=== PATIENT | male | born 1940 | race Caucasian/White ===

== ENCOUNTER 2020-04-03 15:48 | Inpatient (IN) | payer MEDICARE ==
[~2020-04-03] VITALS: Ht 177.8 cm; Wt 98.7 kg
[2020-04-03] VITALS (21 sets, daily range): BP systolic 84–154; BP diastolic 43–81; BMI 39.8
[2020-04-03 17:23] LABS: HEMATOCRIT 36.1 % (42.0-54.0); HEMOGLOBIN 12.2 g/dL (13.5-17.5); MCH 30.7 pg (26.0-34.0); MCHC 33.8 g/dL (31.0-37.0); MCV 90.7 fL (80.0-100.0); MEAN PLATELET VOLUME 11.1 fL (7.4-10.4); PLATELET COUNT 231 10x3/uL (130-400); RBC 3.98 10x6/uL (4.20-6.10); RDW 14.9 % (11.5-14.5); WBC 33.9 10x3/uL (4.8-10.8)
[2020-04-03 18:54] LABS: ALBUMIN 1.5 g/dL (3.4-5.0); ALKALINE PHOSPHATASE 169 U/L (30-120); ALT (SGPT) 59 U/L (10-68); BILIRUBIN - TOTAL 0.52 mg/dL (0.2-1.3); CALC OSMOLALITY 286 mosm/kg (275-300); CARBON DIOXIDE 19.7 mmol/L (21.0-32.0); CHLORIDE - SERUM 103 mmol/L (98-107); CKMB 1.7 U/L (0.0-3.6); CREATINE KINASE 150 UL (21-232); CREATININE - SERUM 3.2 mg/dL (0.6-1.3); EOSINOPHILS 1 % (0-7); GLUCOSE 159 mg/dL (74-106); LYMPHOCYTES 5 % (15-50); MONOCYTES 2 % (2-11); NEUTROPHILS 92 % (40-80); PLATELET ESTIMATE NORMAL; POTASSIUM - SERUM 5.9 mmol/L (3.5-5.1); PRO BNP 1759 pg/mL (0-450); PROTEIN - SERUM 4.3 g/dL (6.4-8.2); SODIUM 133 mmol/L (136-145); TROPONIN-I < 0.017 ng/mL (0.000-0.060); UREA NITROGEN 62 mg/dL (7-18); eGFR NON AFRICAN AMERICAN 20 mL/min (90-120)
[2020-04-03 18:58] LABS: INR 1.34 (0.85-1.17); PROTIME 16.4 SECONDS (11.6-15.0)
--- NOTE | 2020-04-03 19:00 | NUR ---
RECIVED REPORT AT DOOR, ENTERIC ISOLATION OBSERVED. PT IS INTUBATED/SEDATED. VSS. RIGHT SUBCALVIN CDI, CHACON TO GRAVITY AND DRAINING. RESTRAINTS ARE OBSERVED,SEE FLOWSHEET. BED IS LOW,SIDE RIALSX2,CALL LIGHT WITHIN REACH. WILL CONINTUE TO MONITOR
[2020-04-03 19:21] LABS: CALCIUM 7.1 mg/dL (8.5-10.1); THYROID STIMULATING HORMONE 3.21 uIU/mL (0.36-3.74)
--- NOTE | 2020-04-03 21:04 | NUR ---
CALLED AND TALKED WITH PHARMACY ABOUT NEW D5W C BICARB ORDER. SHE VOICED IT WILL BE A LITTLE BIT BUT ILL BRING IT UP .
--- NOTE | 2020-04-03 21:25 | NUR ---
CALLED TO GET UPDATE ON PT. WHILE ON THE PHONE WITH HER PT HR DROPPED TO 45 THEN WENT BACK UP BTW 58-65 SINUS ANA MARIA. T.O TO START DOPAMINE IV AT 10MCG/KG/MIN AT NOW TO TITRATE. T.O READ BACK CORRECT.
[2020-04-03 22:58] LABS: CKMB 2.6 U/L (0.0-3.6); CREATINE KINASE 238 UL (21-232); TROPONIN-I < 0.017 ng/mL (0.000-0.060)
[2020-04-04] VITALS (24 sets, daily range): BP systolic 110–170; BP diastolic 46–98; BMI 32.7
[2020-04-04 05:34] LABS: ALBUMIN 1.4 g/dL (3.4-5.0); ALKALINE PHOSPHATASE 144 U/L (30-120); ALT (SGPT) 46 U/L (10-68); BILIRUBIN - TOTAL 0.55 mg/dL (0.2-1.3); CALCIUM 7.1 mg/dL (8.5-10.1); CARBON DIOXIDE 22.4 mmol/L (21.0-32.0); CHLORIDE - SERUM 103 mmol/L (98-107); CKMB 2.3 U/L (0.0-3.6); CREATINE KINASE 231 UL (21-232); CREATININE - SERUM 2.6 mg/dL (0.6-1.3); MAGNESIUM - SERUM 1.8 mg/dL (1.8-2.4); PHOSPHOROUS 3.9 mg/dL (2.5-4.9); PROTEIN - SERUM 4.1 g/dL (6.4-8.2); SODIUM 135 mmol/L (136-145); THYROID STIMULATING HORMONE 0.87 uIU/mL (0.36-3.74); UREA NITROGEN 61 mg/dL (7-18); eGFR NON AFRICAN AMERICAN 25 mL/min (90-120)
[2020-04-04 05:35] LABS: CALC OSMOLALITY 292 mosm/kg (275-300); GLUCOSE 215 mg/dL (74-106); POTASSIUM - SERUM 4.2 mmol/L (3.5-5.1); TROPONIN-I < 0.017 ng/mL (0.000-0.060)
[2020-04-04 05:36] LABS: HEMOGLOBIN 12.1 g/dL (13.5-17.5); MCH 30.2 pg (26.0-34.0); MCHC 34.6 g/dL (31.0-37.0); MCV 87.3 fL (80.0-100.0); MEAN PLATELET VOLUME 10.9 fL (7.4-10.4); PLATELET COUNT 225 10x3/uL (130-400); RBC 4.01 10x6/uL (4.20-6.10); RDW 14.6 % (11.5-14.5); WBC 23.6 10x3/uL (4.8-10.8)
[2020-04-04 12:08] LABS: ANISOCYTOSIS OCC; BURR CELLS OCC; LYMPHOCYTES 10 % (15-50); MONOCYTES 3 % (2-11); NEUTROPHILS 87 % (40-80); PLATELET ESTIMATE NORMAL
[2020-04-04 14:39] LABS: AMORPHOUS SEDIMENT <1+ /lpf (NONE SEEN); BACTERIA MODERATE /HPF (NONE SEEN); BILIRUBIN NEGATIVE (NEGATIVE); EPITHELIAL CELLS 0-5 /hpf (0-5); KETONE NEGATIVE (NEGATIVE); NITRITE NEGATIVE (NEGATIVE); UROBILINOGEN NORMAL mg/dL (< 2); WHITE CELLS - URINE 0-5 HPF (0-1)
--- NOTE | 2020-04-04 16:18 | NUR ---
IO REMOVED FROM LEFT LEG WITH CATH INTACT. 2X2 DRESSING PLACED.
--- NOTE | 2020-04-04 18:34 | NUR ---
0715-RESTING ON VENT. VITALS STABLE. 0900-VITALS STABLE AND CONTINUES TO REST 1051-MANAGER REGIONAL AT [facility] CALLED FOR PT UPDATE 1345-dr. sultana at bedside. verbal order to titrate dopamine to 5mcg. 1614 BROADCASTER REMOVED IO AT BEDSIDE. DRESSING APPLIED. SITE STABLE AFTER PRESSURE HELD 1800-PT RESTING COMFORTABLY. VSS
[2020-04-05] VITALS (23 sets, daily range): BP systolic 84–159; BP diastolic 47–82; Ht 177.8 cm; Wt 98.7 kg
[2020-04-05 05:09] LABS: BASOPHILS 0.3 % (0-2); EOSINOPHILS 0.1 % (0-7); HEMATOCRIT 32.3 % (42.0-54.0); IMMATURE GRANULOCYTES 5.7 % (0-5); LYMPHOCYTES 9.8 % (15-50); MCH 29.9 pg (26.0-34.0); MCHC 34.1 g/dL (31.0-37.0); MCV 87.8 fL (80.0-100.0); MEAN PLATELET VOLUME 10.7 fL (7.4-10.4); MONOCYTES 5.1 % (2-11); PLATELET COUNT 198 10x3/uL (130-400); RBC 3.68 10x6/uL (4.20-6.10); RDW 14.7 % (11.5-14.5)
[2020-04-05 05:17] LABS: WBC 14.5 10x3/uL (4.8-10.8)
[2020-04-05 05:30] LABS: ALBUMIN 1.5 g/dL (3.4-5.0); ALKALINE PHOSPHATASE 110 U/L (30-120); BILIRUBIN - TOTAL 0.76 mg/dL (0.2-1.3); CALCIUM 7.1 mg/dL (8.5-10.1); CARBON DIOXIDE 26.4 mmol/L (21.0-32.0); CHLORIDE - SERUM 104 mmol/L (98-107); POTASSIUM - SERUM 3.9 mmol/L (3.5-5.1); PROTEIN - SERUM 4.7 g/dL (6.4-8.2); SODIUM 138 mmol/L (136-145); UREA NITROGEN 49 mg/dL (7-18); VANCOMYCIN - RANDOM 22.2 ug/mL (10.0-20.0); eGFR NON AFRICAN AMERICAN 34 mL/min (90-120)
[2020-04-05 05:37] LABS: ALT (SGPT) 32 U/L (10-68); CALC OSMOLALITY 291 mosm/kg (275-300); GLUCOSE 159 mg/dL (74-106); TROPONIN-I < 0.017 ng/mL (0.000-0.060)
--- NOTE | 2020-04-05 07:10 | NUR ---
REPORT RECEIVED FROM OFF GOING NURSE AND PATIENT CARE ASSUMED. PATIENT LAYING IN BED ON BACK WITH EYES OPEN ON VENT AC 16 WVG510% TV550 PEEP 5. BP 142/82 HR 88 T98.4 R18 02SAT 97%. T 98.9. CHACON DRAINING RHONDA URINE. JOVANI SOFT WRIST RESTRAINTS IN PLACE AND SECURED. WILL CONTINUE WITH PLAN OF CARE. SR UP X 2 BED IN LOW POSITION AND CALL LIGHT IN REACH.
--- NOTE | 2020-04-05 07:17 | NUR ---
Pt resting in bed and was positioned for comfort, Pt was bathed and bed changed. No acute distress noted throught the night, call light in reach, bed in low position.
--- NOTE | 2020-04-05 12:08 | NUR ---
PATIENT IS STABLE AND VSS. PATIENT TO MRI. O2 IN PLACE 7L HF. ATIVAN 0.5 MG GIVEN FOR AGITIATION. VS MONITORED WIHLE UNDERGOING MRI.
[2020-04-06] VITALS (24 sets, daily range): BP systolic 84–149; BP diastolic 49–105
[2020-04-06 04:34] LABS: BASOPHILS 0.3 % (0-2); EOSINOPHILS 0.3 % (0-7); HEMATOCRIT 32.8 % (42.0-54.0); HEMOGLOBIN 11.3 g/dL (13.5-17.5); IMMATURE GRANULOCYTES 3.7 % (0-5); LYMPHOCYTES 12.2 % (15-50); MCH 30.2 pg (26.0-34.0); MCHC 34.5 g/dL (31.0-37.0); MCV 87.7 fL (80.0-100.0); MEAN PLATELET VOLUME 10.4 fL (7.4-10.4); MONOCYTES 5.8 % (2-11); NEUTROPHILS 77.7 % (40-80); PLATELET COUNT 175 10x3/uL (130-400); RBC 3.74 10x6/uL (4.20-6.10); RDW 14.8 % (11.5-14.5); WBC 11.1 10x3/uL (4.8-10.8)
[2020-04-06 04:45] LABS: ALBUMIN 1.5 g/dL (3.4-5.0); ANION GAP 12.1 mmol/L (8-16); BILIRUBIN - TOTAL 0.55 mg/dL (0.2-1.3); CALCIUM 7.4 mg/dL (8.5-10.1); CARBON DIOXIDE 26.6 mmol/L (21.0-32.0); CREATININE - SERUM 1.7 mg/dL (0.6-1.3); POTASSIUM - SERUM 3.7 mmol/L (3.5-5.1); PROTEIN - SERUM 4.7 g/dL (6.4-8.2); VANCOMYCIN - RANDOM 15.7 ug/mL (10.0-20.0)
--- NOTE | 2020-04-06 11:09 | NUR ---
Nutrition follow-up: Pt intubated, sedated with propofol Nepro started @ 10 ml/hr with increase to goal rate of 40 ml/hr per Dr. Goodwin Labs reviewed Wt: 228# RDN following.
--- NOTE | 2020-04-06 17:55 | NUR ---
1100: DR. CALERO HERE. FENTANYL DC'D AND PLACED ON CPAP. 1200: EXTUBATED AND PLACED ON NC @ 5 LPM. 1400: COMPLETE BATH AND LINEN CHANGE. 1730: DR. VILLASENOR HERE. NEW ORDERS REC'D.
--- NOTE | 2020-04-06 19:00 | NUR ---
RECIVED BEDSIDE SHIFT REPORT. PT IS AWAKE BUT CONFUSED TO TIME/SITAUION/AND PLACE. HE VOICES"IM CONFUSED AND CANT SEEM TO GET OUT WHAT I WANT TO SAY". FACE SYMMETRY IS SYMMETRIC, SMILE IS SYMMETRIC, AND EYE BROWN LIFT SYMMETRICLY, HANDS ARE EYQUAL IN STRENGTH BILAT. VSS. ISOLATION IS OBSERVED. RIGHT SUBCALVIN IS CDI, CHACON OBSERVED TO GRAVITY AND DRAING YELLOW URINE. HE VOICES"IM POOPING". ARABELLA NIXON AND I CLEAN SMALL INCONTINENT BM AND ROLL PT TO RIGHT SIDE USING POSITIONING BLOCKS. HEELS ARE BRIDGED OFF BED. PT DID HELP SLIGHTLY BY HOLDING SIDE RAIL. HE VOICE"NO" TO ANY PAIN. I EXPLAIN TO HIM WHERE HE IS AND WHY. HE VOICES"OK, I AM TRYING TO PIECE IT ALL TOGETHER". BED IS LOW,SIDE RAISLX2,CALL LIGHT WITHIN REACH. BED ALARM IS ON. PT IS ORIENTED TO USE OF CALL LIGHT. WILL CONINTUE TO MONITOR
[2020-04-07] VITALS (37 sets, daily range): BP systolic 90–168; BP diastolic 46–91
[2020-04-07 05:02] LABS: BASOPHILS 0.1 % (0-2); EOSINOPHILS 0.9 % (0-7); HEMATOCRIT 32.2 % (42.0-54.0); IMMATURE GRANULOCYTES 1.8 % (0-5); LYMPHOCYTES 12.2 % (15-50); MCH 30.4 pg (26.0-34.0); MCHC 34.2 g/dL (31.0-37.0); MONOCYTES 4.1 % (2-11); NEUTROPHILS 80.9 % (40-80); PLATELET COUNT 178 10x3/uL (130-400); RBC 3.62 10x6/uL (4.20-6.10); RDW 15.3 % (11.5-14.5); WBC 9.5 10x3/uL (4.8-10.8)
[2020-04-07 05:19] LABS: ALBUMIN 2.1 g/dL (3.4-5.0); ANION GAP 11.2 mmol/L (8-16); BILIRUBIN - TOTAL 0.47 mg/dL (0.2-1.3); CALCIUM 7.9 mg/dL (8.5-10.1); CARBON DIOXIDE 29.1 mmol/L (21.0-32.0); CREATININE - SERUM 1.6 mg/dL (0.6-1.3); PHOSPHOROUS 3.4 mg/dL (2.5-4.9); POTASSIUM - SERUM 3.3 mmol/L (3.5-5.1); PROTEIN - SERUM 5.2 g/dL (6.4-8.2); VANCOMYCIN - RANDOM 18.3 ug/mL (10.0-20.0)
[2020-04-07 20:05] LABS: BASOPHILS 0.2 % (0-2); EOSINOPHILS 0.4 % (0-7); HEMATOCRIT 31.5 % (42.0-54.0); HEMOGLOBIN 10.5 g/dL (13.5-17.5); IMMATURE GRANULOCYTES 1.6 % (0-5); LYMPHOCYTES 9.8 % (15-50); MCH 29.8 pg (26.0-34.0); MCHC 33.3 g/dL (31.0-37.0); MCV 89.5 fL (80.0-100.0); MEAN PLATELET VOLUME 9.8 fL (7.4-10.4); MONOCYTES 3.5 % (2-11); NEUTROPHILS 84.5 % (40-80); PLATELET COUNT 177 10x3/uL (130-400); RBC 3.52 10x6/uL (4.20-6.10); RDW 15.6 % (11.5-14.5); WBC 9.8 10x3/uL (4.8-10.8)
[2020-04-07 20:19] LABS: APTT 35.8 SECONDS (22.8-39.4); INR 1.57 (0.85-1.17); PROTIME 18.6 SECONDS (11.6-15.0)
--- NOTE | 2020-04-07 20:30 | NUR ---
HANDED OVER PT CARE TO LANDY NIXON
[2020-04-08] VITALS (24 sets, daily range): BP systolic 120–183; BP diastolic 61–99
[2020-04-08 06:02] LABS: BASOPHILS 0.1 % (0-2); EOSINOPHILS 0.4 % (0-7); HEMATOCRIT 27.4 % (42.0-54.0); HEMOGLOBIN 9.2 g/dL (13.5-17.5); MCH 30.2 pg (26.0-34.0); MCHC 33.6 g/dL (31.0-37.0); MCV 89.8 fL (80.0-100.0); MEAN PLATELET VOLUME 10.2 fL (7.4-10.4); MONOCYTES 4.5 % (2-11); PLATELET COUNT 164 10x3/uL (130-400); RBC 3.05 10x6/uL (4.20-6.10); RDW 15.5 % (11.5-14.5); WBC 8.2 10x3/uL (4.8-10.8)
[2020-04-08 06:47] LABS: BILIRUBIN - TOTAL 0.61 mg/dL (0.2-1.3); CALCIUM 7.8 mg/dL (8.5-10.1); CARBON DIOXIDE 30.2 mmol/L (21.0-32.0); CREATININE - SERUM 1.6 mg/dL (0.6-1.3); PROTEIN - SERUM 5.8 g/dL (6.4-8.2); VANCOMYCIN - RANDOM 20.4 ug/mL (10.0-20.0)
[2020-04-08 06:53] LABS: ALBUMIN 3.3 g/dL (3.4-5.0); ANION GAP 11.7 mmol/L (8-16); PHOSPHOROUS 2.3 mg/dL (2.5-4.9)
[2020-04-08 06:54] LABS: POTASSIUM - SERUM 2.9 mmol/L (3.5-5.1)
--- NOTE | 2020-04-08 12:00 | NUR ---
ATTEMPTED TO START PERIPHERAL IV. NO SUITABLE SITES FOUND.
[2020-04-08 13:45] LABS: HEMATOCRIT 25.3 % (42.0-54.0); HEMOGLOBIN 8.5 g/dL (13.5-17.5)
[2020-04-08 22:00] LABS: HEMATOCRIT 28.8 % (42.0-54.0); HEMOGLOBIN 9.5 g/dL (13.5-17.5)
[2020-04-09] VITALS (29 sets, daily range): BP systolic 103–184; BP diastolic 50–123
[2020-04-09 06:24] LABS: BASOPHILS 0.1 % (0-2); EOSINOPHILS 0.1 % (0-7); HEMATOCRIT 28.5 % (42.0-54.0); HEMOGLOBIN 9.5 g/dL (13.5-17.5); IMMATURE GRANULOCYTES 0.9 % (0-5); LYMPHOCYTES 6.4 % (15-50); MCHC 33.3 g/dL (31.0-37.0); MCV 89.9 fL (80.0-100.0); MEAN PLATELET VOLUME 10.2 fL (7.4-10.4); MONOCYTES 2.7 % (2-11); NEUTROPHILS 89.8 % (40-80); PLATELET COUNT 192 10x3/uL (130-400); RBC 3.17 10x6/uL (4.20-6.10); RDW 15.6 % (11.5-14.5)
[2020-04-09 06:33] LABS: WBC 13.5 10x3/uL (4.8-10.8)
[2020-04-09 06:49] LABS: ALBUMIN 3.6 g/dL (3.4-5.0); ANION GAP 15.5 mmol/L (8-16); BILIRUBIN - TOTAL 0.83 mg/dL (0.2-1.3); CALCIUM 8.3 mg/dL (8.5-10.1); CARBON DIOXIDE 28.7 mmol/L (21.0-32.0); CREATININE - SERUM 1.7 mg/dL (0.6-1.3); MAGNESIUM - SERUM 1.9 mg/dL (1.8-2.4); PHOSPHOROUS 1.8 mg/dL (2.5-4.9); VANCOMYCIN - RANDOM 13.9 ug/mL (10.0-20.0)
[2020-04-09 06:53] LABS: POTASSIUM - SERUM 3.2 mmol/L (3.5-5.1)
--- NOTE | 2020-04-09 07:00 | NUR ---
PT REPORT RECEIVED FROM SOAP MIXER NURSE. NO ACUTE SIGNS OF DISTRESS NOTED. PT RESTING IN BED COMFORTABLY ON BIPAP. SHIFT ASSESSMENT COMPLETED. WILL CONTINUE TO MONITOR
[2020-04-09 11:02] LABS: HEMOGLOBIN 10.1 g/dL (13.5-17.5)
--- NOTE | 2020-04-09 13:05 | NUR ---
Nutrition follow-up: Pt NPO after extubation; swallow evaluation pending Labs reviewed ProcalAmine PPN @ 75 ml/hr Wt: 218# BIPAP in place RDN following.
--- NOTE | 2020-04-09 14:44 | NUR ---
pt had bm. cleaned up and given chg bath. will continue to monitor
[2020-04-09 19:57] LABS: HEMATOCRIT 31.3 % (42.0-54.0); HEMOGLOBIN 10.7 g/dL (13.5-17.5)
[2020-04-10] VITALS (27 sets, daily range): BP systolic 116–161; BP diastolic 66–108
[2020-04-10 06:02] LABS: BASOPHILS 0.3 % (0-2); EOSINOPHILS 1.1 % (0-7); HEMOGLOBIN 11.5 g/dL (13.5-17.5); IMMATURE GRANULOCYTES 0.8 % (0-5); LYMPHOCYTES 6.4 % (15-50); MCH 30.9 pg (26.0-34.0); MCHC 34.8 g/dL (31.0-37.0); MCV 88.7 fL (80.0-100.0); MEAN PLATELET VOLUME 11.8 fL (7.4-10.4); MONOCYTES 4.1 % (2-11); NEUTROPHILS 87.3 % (40-80); PLATELET COUNT 188 10x3/uL (130-400); RBC 3.72 10x6/uL (4.20-6.10); RDW 15.9 % (11.5-14.5); WBC 14.3 10x3/uL (4.8-10.8)
[2020-04-10 06:08] LABS: ALBUMIN 3.3 g/dL (3.4-5.0); ANION GAP 12.8 mmol/L (8-16); BILIRUBIN - TOTAL 1.03 mg/dL (0.2-1.3); CALCIUM 8.1 mg/dL (8.5-10.1); CARBON DIOXIDE 32.5 mmol/L (21.0-32.0); CREATININE - SERUM 1.6 mg/dL (0.6-1.3); POTASSIUM - SERUM 3.3 mmol/L (3.5-5.1); PROTEIN - SERUM 5.8 g/dL (6.4-8.2)
--- NOTE | 2020-04-10 07:15 | NUR ---
REC'D PT IN BED WITH EYES OPEN. AWAKE AND ALERT TO PERSON ONLY AT THIS TIME. ASSESSMENT COMPLETED. IV TO RIGHT UPPER ARM PULLED AND NOT INTACT AT THIS TIME. CALLED VASCULAR NURSE TO GET IV RESTARTED. LEFT MESSAGE WITH GERMÁN NIXON. PT DENIES ANY PAIN OR DISCOMFORT AT THIS TIME. F/C INTACT AND TO DRAINING TO BSD. PRESCRIBED MEDS PROVIDED ORDERED. MED COMPLIANT. O2 IN PLACE VIA N/C AT 7L PER ORDER. VS TAKEN. NO S/SX OF DISTRESS NOTED AT THIS TIME. WILL CPOC.
--- NOTE | 2020-04-10 09:00 | NUR ---
GERMÁN MANAGER PHOTOGRAPHY NURSE PRESENT. IV STARTED. 20G TO RIGHT UPPER ARM. IV INTACT AND FLUSHING WITHOUT DIFFICULTY NOTED. PT DENIES ANY PAIN OR DISCOMFORT AT THIS TIME. NEW ORDERS NOTED. IV FLUIDS RESTARTED PER ORDERS. WILL CPOC.
--- NOTE | 2020-04-10 11:38 | NUR ---
PT RIGHT UPPER ARM RED, SWOLLEN AND PT C/O PAIN AT IV SITE AT THIS TIME. IV FLUIDS STOPPED. IV INFILTRATED. IV DC DUE AT THIS TIME. ATTEMPTING TO NOTIFY DR. HODGSON AT THIS TIME.
--- NOTE | 2020-04-10 12:07 | NUR ---
DR. HODGSON RETURNED PAGE. NEW ORDER FOR VASCULAR NURSE CONSULT FOR PICC OR MIDLINE. ATTEMPTED TO NOTIFY VASCULAR NURSE, MESSAGE LEFT. WILL ATTEMPT TO CALL AT LATER TIME.
--- NOTE | 2020-04-10 13:47 | NUR ---
ATTEMPTED TO CONTACT VASCULAR NURSE GERMÁN AT THIS TIME. NO ANSWER. LEFT VOICEMAIL REGARDING CONSULT.
--- NOTE | 2020-04-10 14:39 | NUR ---
DIRECTOR OF GROUP SALES DR. JENSEN HERE ROUNDING. NOTIFIED IN REGARDING ELEVATED HEART RATE. DR. JENSEN REVIEWED MEDS AND LABS. NO NEW ORDERS NOTED AT THIS TIME. AWARE OF NO IV ACCESS AT THIS TIME. AWAITING ON VASCULAR NURSE TO CONSULT REGARDING PICC OR MIDLINE. WILL CPOC.
--- NOTE | 2020-04-10 15:00 | NUR ---
NEW ORDER DILTIAZEM 60MG PO ONE TIME ORDER NOTED AND GIVEN ORDERED.
--- NOTE | 2020-04-10 15:27 | NUR ---
Order received for consult for midline or PICC. Will place midline IV. On arrival, midline discussed with patient and verbal consent obtained. Using site rite ultrasound, left upper arm basilic vein identified. Prep, drape and 1% xylocaine to area. Vein accessed and single lumen midline inserted to 15 cm. Flushes easily and with good blood return. Site dressed with statlock, biopatch and tegaderm dressing. Patinet tolerated well with less than 5 ml blood loss.
--- NOTE | 2020-04-10 15:30 | NUR ---
VASCULAR NURSE PRESENT. MIDLINE PLACED TO LEFT UPPER ARM. NS AT 10ML- KVO INFUSING VIA PUMP PER ORDER. VANOMYCIN 1.25GM/NS 250ML Q 24 HRS INFUSING PER ORDER. PT TOLERATING WELL AT THIS TIME. NO S/SX OF DISTRESS NOTED. PT DENIES PAIN.
--- NOTE | 2020-04-10 15:54 | NUR ---
OT NOTE: PT COMPLETED SIDE ROLLING WITH MAX A. PT COMPLETED POSITIONING WITH MAX A. PT COMPLETED FACE HYGIENE WITH MIN A. PT REQUIRED VERBAL CUES FOR INCREASED SEQUENCING OF TASKS. [id number] JAMA AVINA COTA
--- NOTE | 2020-04-10 17:22 | NUR ---
PT HAD LOOSE BM. PT AND LINEN CHANGED. WILL CPOC
--- NOTE | 2020-04-10 23:17 | MORECARE ---
CASE MANAGEMENT DISCHARGE SUMMARY PATIENT: LAUREL GLEASON UNIT: [id number] ADM DATE: 04/03/20 AGE: 80 : 39 SEX: M ROOM/BED: D.2310 AUTHOR: CHI GOLDBERG PHYSICIAN: REFERRING PHYSICIAN: BRISSA BHAGAT MD DATE OF SERVICE: 04/10/20 Discharge Plan Patient Name: LUAREL GLEASON [facility] [facility] 1940 Planned Disposition: Anticipated Discharge Date: Discharge Date: Expected LOS: Initial Reviewer: [email or web address] Initial Review Date: 04/03/2020 Generated: 04/11/20 12:16 am Patient Name: LAUREL GLEASON Page 28222 at 2317 All edits/amendments must be made on the electronic document DICTATION DATE: 04/10/202316 FELTMAKER: ZAIN 04/10/202316 RPT#: [id number] DC DATE: STATUS: ADM IN [facility] [address] [place] [address] END OF REPORT
[2020-04-11] VITALS (15 sets, daily range): BP systolic 109–143; BP diastolic 0–99
[2020-04-11 05:19] LABS: BASOPHILS 0.1 % (0-2); EOSINOPHILS 1.7 % (0-7); HEMATOCRIT 33.9 % (42.0-54.0); HEMOGLOBIN 11.3 g/dL (13.5-17.5); IMMATURE GRANULOCYTES 0.6 % (0-5); LYMPHOCYTES 8.5 % (15-50); MCH 30.1 pg (26.0-34.0); MCHC 33.3 g/dL (31.0-37.0); MCV 90.2 fL (80.0-100.0); MEAN PLATELET VOLUME 11.1 fL (7.4-10.4); MONOCYTES 4.2 % (2-11); NEUTROPHILS 84.9 % (40-80); RBC 3.76 10x6/uL (4.20-6.10); RDW 16.5 % (11.5-14.5); WBC 15.4 10x3/uL (4.8-10.8)
[2020-04-11 05:30] LABS: PLATELET COUNT 280 10x3/uL (130-400)
[2020-04-11 05:42] LABS: ANION GAP 10.7 mmol/L (8-16); BILIRUBIN - TOTAL 1.17 mg/dL (0.2-1.3); C-REACTIVE PROTEIN 6.1 mg/dL (0.0-0.9); CALCIUM 8.1 mg/dL (8.5-10.1); CARBON DIOXIDE 32.6 mmol/L (21.0-32.0); CREATININE - SERUM 1.8 mg/dL (0.6-1.3); PROTEIN - SERUM 5.5 g/dL (6.4-8.2)
[2020-04-11 05:43] LABS: POTASSIUM - SERUM 3.3 mmol/L (3.5-5.1)
--- NOTE | 2020-04-11 07:30 | NUR ---
0730. bedside report recieved. pt plesantly confused. wearing 02 around eyes. repositioned and decreased o2 from 7 liters to 6. will continue to monitor. 0830 repositioned pt upto high fowlers. crused pills in pudding. pt required cuing to initiate a swallow multiple times. pt was also provided with nectar thicken juice. after one swallow pt begain coughing. will speak with ST about findings. 0900 Dr White at bedside updated condition. Stated pt can transfer to med/surg 11 Pt with pt. it took 2 people to assist pt onto side of bed. pt was respositioned back in semi fowlers for comfort. Pt more alert at this time. Pt asked for stan. stan provided. [address] at bedside. updated findings from this AM. Arturo provided another ST eval from bedside. pt did not have any difficulty swallowing. Pt did not require cueing to swallow. 1700 pt requesting to have lights out and curtain shut. stated he wanted to go to bed. 1800 pt resting with eyes closed.
--- NOTE | 2020-04-11 11:22 | NUR ---
Nutrition follow-up: Pt receiving a regular puree diet with honey thick liquids PO intake 50-75% of last 2 meals Pt wanting diet changed to regular consistency Labs reviewed Wt: 217# PO Intake good at this time RDN following.
--- NOTE | 2020-04-11 16:07 | NUR ---
OT NOTE: PT COMPLETED SUPINE TO SIT WITH MAX A X2. PT COMPLETED EOB SITTING WITH MOD A. PT EXHIBITED DECREASED ACTIVITY TOLERANCE. PT COMPLETED UE AROM WITH BED MOB TASKS. [id number] THANK YOU,ELIECER MEEKS
[2020-04-12] VITALS (13 sets, daily range): BP systolic 112–143; BP diastolic 65–97
[2020-04-12 04:53] LABS: BASOPHILS 0.2 % (0-2); EOSINOPHILS 1.8 % (0-7); HEMATOCRIT 32.1 % (42.0-54.0); HEMOGLOBIN 10.5 g/dL (13.5-17.5); IMMATURE GRANULOCYTES 0.6 % (0-5); LYMPHOCYTES 12.5 % (15-50); MCH 29.7 pg (26.0-34.0); MCHC 32.7 g/dL (31.0-37.0); MCV 90.7 fL (80.0-100.0); MEAN PLATELET VOLUME 10.7 fL (7.4-10.4); MONOCYTES 4.3 % (2-11); NEUTROPHILS 80.6 % (40-80); PLATELET COUNT 294 10x3/uL (130-400); RBC 3.54 10x6/uL (4.20-6.10); RDW 16.7 % (11.5-14.5)
[2020-04-12 05:19] LABS: ALBUMIN 2.7 g/dL (3.4-5.0); ANION GAP 9.3 mmol/L (8-16); BILIRUBIN - TOTAL 1.19 mg/dL (0.2-1.3); CALCIUM 8.1 mg/dL (8.5-10.1); CARBON DIOXIDE 31.6 mmol/L (21.0-32.0); CREATININE - SERUM 1.8 mg/dL (0.6-1.3); PROTEIN - SERUM 5.9 g/dL (6.4-8.2)
[2020-04-12 05:20] LABS: POTASSIUM - SERUM 2.9 mmol/L (3.5-5.1)
--- NOTE | 2020-04-12 15:12 | NUR ---
OT NOTE: PT COMPLETED POSITIONING WITH MAX A. PT COMPLETED BUE AAROM TOLERATED. [phone] THANK YOU,ELIECER MEEKS
[2020-04-12 18:03] LABS: ANION GAP 10.4 mmol/L (8-16); CALCIUM 8.1 mg/dL (8.5-10.1); CARBON DIOXIDE 29.9 mmol/L (21.0-32.0); CREATININE - SERUM 1.8 mg/dL (0.6-1.3); POTASSIUM - SERUM 3.3 mmol/L (3.5-5.1)
[2020-04-13] VITALS (18 sets, daily range): BP systolic 122–169; BP diastolic 68–103
--- NOTE | 2020-04-13 07:30 | NUR ---
PT LAYING IN BED WITH EYES CLOSED, NO DISTRESS NOTED, CALL LIGHT IN REACH, WILL MONITOR
--- NOTE | 2020-04-13 08:00 | NUR ---
ASSISTED PT WITH BREAFKAST TRAY, TOLERATED WELL, NO NEEDS VOICED AT THIS TIME, WILL MONITOR
--- NOTE | 2020-04-13 09:58 | NUR ---
Nutrition follow-up: Pt receiving a regular puree diet with honey thick liquids PO Intake ~25% of meals Pt with O2 mask on place; breakfast at bedside Labs reivewed' Wt: 217# Last BM charted 04/10 RDN following.
--- NOTE | 2020-04-13 10:30 | NUR ---
DR. HODGSON HERE SEEING PATIENT
--- NOTE | 2020-04-13 11:20 | NUR ---
OT NOTE: PT DOING BETTER TODAY. LESS CONFUSION NOTED. PT WAS ABLE TO ADVANCE LES TO EOB WITHOUT ASSIST TODAY; MAX ASSIST FOR SUPINE TO SIT; CGA FOR STATIC SITTING. PT CONT TO C/O WEAKNESS ADN DIZZINESS..02 SATS REMAINED ABOVE 97%, HOWEVER, HEARTRATE FLUCTUATED FROM 120-146 THROUGHOUT TMT. ASSISTED PT BACK TO SUPINE POSITION. MAX ASSIST X 2 FOR REPOSITIONING. EDUCATED ON UE AND LE EXS WITH INCREASED FOCUS ON ANKLE PUMPS AND FINGER FLEX/EXT TO ASSIST WITH EDEMA CONTROL. PT REQUESTING A DRINK.. STATES THAT HE HAD VARIOUS ITEMS THIS AM BUT THAT HE WOULD LIKE A SODA. AFTER LOOKING IN ST NOTES, IT WAS REPORTED THAT HE HAS TO REMAIN ON HONEY THICK, HE WAS UNABLE TO TOLERATE ANYTHING LESS. PT ABLE TO HOLD CUP AND DRINK A FEW SIPS WITH STRAW. MIGUEL CHAVIRA, OTR/L [id number]
--- NOTE | 2020-04-13 12:00 | NUR ---
LAYING IN BED WATCHING TV, CALL LIGHT IN REACH, WILL MONITOR
--- NOTE | 2020-04-13 14:00 | NUR ---
LAB AT BEDSIDE TRYING TO DRAW MORNING LABS
[2020-04-13 14:58] LABS: BASOPHILS 0.2 % (0-2); EOSINOPHILS 0.7 % (0-7); HEMATOCRIT 29.8 % (42.0-54.0); IMMATURE GRANULOCYTES 0.5 % (0-5); LYMPHOCYTES 9.3 % (15-50); MCHC 33.6 g/dL (31.0-37.0); MCV 89.5 fL (80.0-100.0); MEAN PLATELET VOLUME 10.7 fL (7.4-10.4); MONOCYTES 5.2 % (2-11); NEUTROPHILS 84.1 % (40-80); RBC 3.33 10x6/uL (4.20-6.10); RDW 16.6 % (11.5-14.5)
[2020-04-13 15:00] LABS: PLATELET COUNT 218 10x3/uL (130-400)
[2020-04-13 15:23] LABS: ALBUMIN 2.5 g/dL (3.4-5.0); ANION GAP 10.9 mmol/L (8-16); BILIRUBIN - TOTAL 0.8 mg/dL (0.2-1.3); C-REACTIVE PROTEIN 2.7 mg/dL (0.0-0.9); CALCIUM 7.7 mg/dL (8.5-10.1); CARBON DIOXIDE 28.3 mmol/L (21.0-32.0); CREATININE - SERUM 1.7 mg/dL (0.6-1.3); MAGNESIUM - SERUM 1.8 mg/dL (1.8-2.4); POTASSIUM - SERUM 3.2 mmol/L (3.5-5.1); PROTEIN - SERUM 5.2 g/dL (6.4-8.2)
--- NOTE | 2020-04-13 16:00 | NUR ---
PT SLEEPING, NO DISTRESS NOTED, WILL MONITOR
--- NOTE | 2020-04-13 17:00 | NUR ---
DINNER TRAY SERVED, PT FEEDING SELF , TOLERATING WELL
--- NOTE | 2020-04-13 18:00 | NUR ---
DRESSINGS CHANGED TO BILAT KNEES, CDI, NO NEEDS VOICED, CALL LIGHT IN REACH, WILL MONITOR
--- NOTE | 2020-04-13 19:15 | NUR ---
PT RESTING WITH EYES CLOSED. VSS. AROUSES WITH VERBAL STIMULI. ANSWERS QUESTIONS APPROPRIATELY. HE DENIES PAIN. WATER THICKEND ORDERED. BED IS LOW AND CALL LIGHT IN REACH.
--- NOTE | 2020-04-13 20:21 | MORECARE ---
CASE MANAGEMENT DISCHARGE SUMMARY PATIENT: LAUREL GLEASON UNIT: [id number] ADM DATE: 04/03/20 AGE: 80 : 39 SEX: M ROOM/BED: D.2310 AUTHOR: CHI GOLDBERG PHYSICIAN: REFERRING PHYSICIAN: BRISSA BHAGAT MD DATE OF SERVICE: 04/13/20 Discharge Plan Patient Name: LAUREL GLEASON [facility] [facility] 1940 Planned Disposition: Anticipated Discharge Date: Discharge Date: Expected LOS: Initial Reviewer: [email or web address] Initial Review Date: 04/03/2020 Generated: 04/13/20 9:20 pm Last DP export: 04/10/20 10:17 p Patient Name: LAUREL GLEASON Page [id number] at 2020 All edits/amendments must be made on the electronic document DICTATION DATE: 04/13/202019 ZIPPER JOINER: ZAIN 04/13/202019 RPT#: [id number] DC DATE: STATUS: ADM IN [facility] [address] [place] [address] END OF REPORT
--- NOTE | 2020-04-13 20:28 | MORECARE ---
CASE MANAGEMENT DISCHARGE SUMMARY PATIENT: LAUREL GLEASON UNIT: [id number] ADM DATE: 04/03/20 AGE: 80 : 39 SEX: M ROOM/BED: D.2310 AUTHOR: CHI GOLDBERG PHYSICIAN: REFERRING PHYSICIAN: BRISSA BHAGAT MD DATE OF SERVICE: 04/13/20 Discharge Plan Patient Name: LAUREL GLEASON [facility] [facility] 1940 Planned Disposition: Anticipated Discharge Date: Discharge Date: Expected LOS: Initial Reviewer: [email or web address] Initial Review Date: 04/03/2020 Generated: 04/13/20 9:27 pm DCPIA - Discharge Planning Initial Assessment Updated by [email or web address]: Ariadne Fisher on 04/13/20 8:24 pm * Is the patient Alert and Oriented? Yes * How many steps to enter\exit or inside your home? * PCP HUNG Gould APN * Pharmacy [facility] * Preadmission Environment Home Alone * ADLs Partial Dependent * Partial ADLs (Assistance needed) Ambulation Bathing Dressing Eating Medication Management Toileting Transfers * Equipment None * List name and contact numbers for known caregivers / representatives who currently or will assist patient after discharge: JUAN F GARCIA [facility] [phone] * Community resources currently utilized Home Health * Please name any agencies selected above. [facility] * Additional services required to return to the preadmission environment? No * Can the patient safely return to the preadmission environment? Yes * Has this patient been hospitalized within the prior 30 days at any hospital? No Last DP export: 04/13/20 7:21 p Patient Name: LAUREL GLEASON Page 09702 at 2027 All edits/amendments must be made on the electronic document DICTATION DATE: 04/13/202026 GRAIN RECEIVER: ZAIN 04/13/202026 RPT#: [id number] DC DATE: STATUS: ADM IN [facility] [address] [place] [address] END OF REPORT
--- NOTE | 2020-04-13 20:34 | MORECARE ---
CASE MANAGEMENT DISCHARGE SUMMARY PATIENT: LAUREL GLEASON UNIT: [id number] ADM DATE: 04/03/20 AGE: 80 : 39 SEX: M ROOM/BED: D.2310 AUTHOR: YUSUFDOC PHYSICIAN: REFERRING PHYSICIAN: BRISSA BHAGAT MD DATE OF SERVICE: 04/13/20 Discharge Plan Patient Name: LAUREL GLEASON [facility]:[place] : 1940 Planned Disposition: Anticipated Discharge Date: Discharge Date: Expected LOS: Initial Reviewer: [email or web address] Initial Review Date: 04/03/2020 Generated: 04/13/20 9:34 pm Comments DCP- Discharge Planning Updated by [email or web address]: Ariadne Fisher on 04/13/20 7:[address] LATE ENTRY 04/11/20 Patient Name: LAUREL GLEASON Admission Status: Elective Accout number: [id number] Admission Date: 04-03-2020 : 1940 Admission Diagnosis:SEPSIS, UNSPECIFIED ORGANISM Attending: BRISSA BHAGAT Current LOS: 10 Anticipated DC Date: Planned Disposition: Primary Insurance: [employer] CHOICE PPO MCR ADVANT Discharge Planning Comments: CM called and spoke with patient's contact Juan F to complete initial dc planning assessment. CM educated patient on the CM role and verbal consent given by patient to complete assessment. Patient lives at home alone Patient is independent. Juan F states they have been trying to get him into a NH. [facility] CM discussed availability of home health, rehab services, and medical equipment. Patient has HH with [facility] complete. CM will continue to follow and will assist as needed with dc plans/needs. Wheelchair Driver: Ariadne Fisher DCPIA - Discharge Planning Initial Assessment Updated by [email or web address]: Ariadne Fisher on 04/13/20 8:24 pm * Is the patient Alert and Oriented? Yes * How many steps to enter\exit or inside your home? * PCP HUNG Gould APN * Pharmacy [facility] * Preadmission Environment Home Alone * ADLs Partial Dependent * Partial ADLs (Assistance needed) Ambulation Bathing Dressing Eating Medication Management Toileting Transfers * Equipment None * List name and contact numbers for known caregivers / representatives who currently or will assist patient after discharge: JUAN F GARCIA - [place] - [phone] * Community resources currently utilized Home Health * Please name any agencies selected above. [facility] * Additional services required to return to the preadmission environment? No * Can the patient safely return to the preadmission environment? Yes * Has this patient been hospitalized within the prior 30 days at any hospital? No Last DP export: 04/13/20 7:28 p Patient Name: LAUREL GLEASON Page 32723 at 2033 All edits/amendments must be made on the electronic document DICTATION DATE: 04/13/202033 ASSISTANT ADMINISTRATOR: ZAIN 04/13/202033 RPT#: [id number] DC DATE: STATUS: ADM IN [facility] [address] [place] [address] END OF REPORT
--- NOTE | 2020-04-13 21:20 | MORECARE ---
CASE MANAGEMENT DISCHARGE SUMMARY PATIENT: LAUREL GLEASON UNIT: [id number] ADM DATE: 04/03/20 AGE: 80 : 39 SEX: M ROOM/BED: D.2310 AUTHOR: YUSUFDOC PHYSICIAN: REFERRING PHYSICIAN: BRISSA BHAGAT MD DATE OF SERVICE: 04/13/20 Discharge Plan Patient Name: LAUREL GLEASON [facility]:[place] : 1940 Planned Disposition: Anticipated Discharge Date: Discharge Date: Expected LOS: Initial Reviewer: [email or web address] Initial Review Date: 04/03/2020 Generated: 04/13/20 10:20 pm Comments DCP- Discharge Planning Updated by [email or web address]: Ariadne Fisher on 04/13/20 8:[address] Patient has a transfer back agreement with [facility]. Dr. White stated that the patient can transfer to floor and then we may work transferring back to [facility] CM received a call from Raisa Stephens from [employer] [facility] questioning about patient coming back to [facility] for rehab RAISA STEPHENS contact [phone] ext [phone] fax [phone] DCP- Discharge Planning Updated by [email or web address]: Ariadne Fisher on 04/13/20 7:[address] LATE ENTRY 04/11/20 Patient Name: LAUREL GLEASON Admission Status: Elective Accout number: [id number] Admission Date: 04-03-2020 : 1940 Admission Diagnosis:SEPSIS, UNSPECIFIED ORGANISM Attending: BRISSA BHAGAT Current LOS: 10 Anticipated DC Date: Planned Disposition: Primary Insurance: HU[employer] CHOICE PPO MCR ADVANT Discharge Planning Comments: CM called and spoke with patient's contact Juan F to complete initial dc planning assessment. CM educated patient on the CM role and verbal consent given by patient to complete assessment. Patient lives at home alone Patient is independent. Juan F states they have been trying to get him into a NH. [facility] CM discussed availability of home health, rehab services, and medical equipment. Patient has HH with [facility] complete. CM will continue to follow and will assist as needed with dc plans/needs. Draw Press Operator: Ariadne Fisher DCPIA - Discharge Planning Initial Assessment Updated by [email or web address]: Ariadne Fisher on 04/13/20 8:24 pm * Is the patient Alert and Oriented? Yes * How many steps to enter\exit or inside your home? * PCP HUNG Gould APN * [facility] * Preadmission Environment Home Alone * ADLs Partial Dependent * Partial ADLs (Assistance needed) Ambulation Bathing Dressing Eating Medication Management Toileting Transfers * Equipment None * List name and contact numbers for known caregivers / representatives who currently or will assist patient after discharge: JUAN F GARCIA - [facility] [address] [phone] * Community resources currently utilized Home Health * Please name any agencies selected above. [facility] * Additional services required to return to the preadmission environment? No * Can the patient safely return to the preadmission environment? Yes * Has this patient been hospitalized within the prior 30 days at any hospital? No External Providers External Provider: OTHER-OTHER Next Contact Date: Service Request Date: Service Type: Resolution: Reviewer: Comments: Last DP export: 04/13/20 7:34 p Patient Name: LAUREL GLEASON Page 33069 at 2119 All edits/amendments must be made on the electronic document DICTATION DATE: 04/13/202119 POLL CLERK: ZAIN 04/13/202119 RPT#: [id number] DC DATE: STATUS: ADM IN [facility] [address] [place] [address] END OF REPORT
--- NOTE | 2020-04-13 21:27 | MORECARE ---
CASE MANAGEMENT DISCHARGE SUMMARY PATIENT: LAUREL GLEASON UNIT: [id number] ADM DATE: 04/03/20 AGE: 80 : 39 SEX: M ROOM/BED: D.2310 AUTHOR: YUSUFDOC PHYSICIAN: REFERRING PHYSICIAN: BRISSA BHAGAT MD DATE OF SERVICE: 04/13/20 Discharge Plan Patient Name: LAUREL GLEASON [facility]:[place] : 1940 Planned Disposition: Anticipated Discharge Date: Discharge Date: Expected LOS: Initial Reviewer: [email or web address] Initial Review Date: 04/03/2020 Generated: 04/13/20 10:26 pm Comments DCP- Discharge Planning Updated by [email or web address]: Ariadne Fisher on 04/13/20 8:[address] Patient has a transfer back agreement with [facility]. Dr. White stated that the patient can transfer to floor and then we may work transferring back to [place] [facility] CM received a call from Raisa Stephens from [facility] questioning about patient coming back to swing bed for rehab RAISA STEPHENS contact [phone] ext [phone] fax [phone] DCP- Discharge Planning Updated by [email or web address]: Ariadne Fisher on 04/13/20 7:[address] LATE ENTRY 04/11/20 Patient Name: LAUREL GLEASON Admission Status: Elective Accout number: [id number] Admission Date: 04-03-2020 : 1940 Admission Diagnosis:SEPSIS, UNSPECIFIED ORGANISM Attending: BRISSA BHAGAT Current LOS: 10 Anticipated DC Date: Planned Disposition: Primary Insurance: [employer] CHOICE PPO MCR ADVANT Discharge Planning Comments: CM called and spoke with patient's contact Juan F to complete initial dc planning assessment. CM educated patient on the CM role and verbal consent given by patient to complete assessment. Patient lives at home alone Patient is independent. Juan F states they have been trying to get him into a NH. [facility] [place] CM discussed availability of home health, rehab services, and medical equipment. Patient has HH with [facility] complete. CM will continue to follow and will assist as needed with dc plans/needs. Head Sugar Reprocess Operator: Ariadne Fisher DCPIA - Discharge Planning Initial Assessment Updated by [email or web address]: Ariadne Fisher on 04/13/20 8:24 pm * Is the patient Alert and Oriented? Yes * How many steps to enter\exit or inside your home? * PCP HUNG Gould APN * [facility] * Preadmission Environment Home Alone * ADLs Partial Dependent * Partial ADLs (Assistance needed) Ambulation Bathing Dressing Eating Medication Management Toileting Transfers * Equipment None * List name and contact numbers for known caregivers / representatives who currently or will assist patient after discharge: JUAN F GARCIA - [facility] [phone] * Community resources currently utilized Home Health * Please name any agencies selected above. [facility] * Additional services required to return to the preadmission environment? No * Can the patient safely return to the preadmission environment? Yes * Has this patient been hospitalized within the prior 30 days at any hospital? No External Providers External Provider: OTHER-OTHER Next Contact Date: Service Request Date: Service Type: Resolution: Reviewer: Comments: Last DP export: 04/13/20 8:20 p Patient Name: LAUREL GLEASON Page 58204 at 2127 All edits/amendments must be made on the electronic document DICTATION DATE: 04/13/202125 CYTOMETRY TECHNOLOGIST: ZAIN 04/13/202125 RPT#: [id number] DC DATE: STATUS: ADM IN [facility] [address] [place] [address] END OF REPORT
[2020-04-14] VITALS: BP 162/71
[2020-04-14 01:00] VITALS: BP 174/80
[2020-04-14 02:00] VITALS: BP 176/86
[2020-04-14 07:00] VITALS: BP 161/85
--- NOTE | 2020-04-14 07:30 | NUR ---
RESTING WITH EYES CLOSED, NO DISTRESS NOTED, WILL MONITOR
--- NOTE | 2020-04-14 08:30 | NUR ---
BREAKFAST TRAY SERVED, PT SITTING UP FEEDING SELF, TOLERATING WELL, CALL LIGHT IN REACH, WILL MONITOR
--- NOTE | 2020-04-14 10:50 | NUR ---
DR HODGSON HERE SEEING PATIENT
[2020-04-14 11:00] VITALS: BP 152/77
--- NOTE | 2020-04-14 12:00 | NUR ---
PT SLEEPING AT THIS TIME
[2020-04-14 13:33] LABS: BASOPHILS 0.3 % (0-2); EOSINOPHILS 1.4 % (0-7); HEMATOCRIT 31.1 % (42.0-54.0); HEMOGLOBIN 10.4 g/dL (13.5-17.5); IMMATURE GRANULOCYTES 0.4 % (0-5); LYMPHOCYTES 11.1 % (15-50); MCH 30.2 pg (26.0-34.0); MCHC 33.4 g/dL (31.0-37.0); MCV 90.4 fL (80.0-100.0); MEAN PLATELET VOLUME 10.6 fL (7.4-10.4); NEUTROPHILS 80.8 % (40-80); RBC 3.44 10x6/uL (4.20-6.10); RDW 17.1 % (11.5-14.5); WBC 10.7 10x3/uL (4.8-10.8)
[2020-04-14 13:43] LABS: PLATELET COUNT 320 10x3/uL (130-400)
[2020-04-14 13:52] LABS: ANION GAP 7.2 mmol/L (8-16); CALCIUM 8.2 mg/dL (8.5-10.1); CREATININE - SERUM 1.7 mg/dL (0.6-1.3); MAGNESIUM - SERUM 1.7 mg/dL (1.8-2.4)
[2020-04-14 13:56] LABS: POTASSIUM - SERUM 2.2 mmol/L (3.5-5.1)
--- NOTE | 2020-04-14 14:20 | NUR ---
REPORT CALLED TO YENI SOSA RN AT [facility]
[2020-04-14 15:00] VITALS: BP 147/76
--- NOTE | 2020-04-14 15:30 | NUR ---
ATTEMPED TO CALL PATIENTS MULTIPLE TIMES TO NOTIFY HER OF PATIENT BEING TRANSFERRED BACK TO [facility] AND UNABLE TO GET IN TOUCH WITH HER
--- NOTE | 2020-04-14 15:48 | MORECARE ---
CASE MANAGEMENT DISCHARGE SUMMARY PATIENT: LAUREL GLEASON UNIT: [id number] ADM DATE: 04/03/20 AGE: 80 : 39 SEX: M ROOM/BED: D.2310 AUTHOR: YUSUF,DOC PHYSICIAN: REFERRING PHYSICIAN: BRISSA BHAGAT MD DATE OF SERVICE: 04/14/20 Discharge Plan Patient Name: LAUREL GLEASON Facility: [facility]:[place] : 1940 Planned Disposition: Anticipated Discharge Date: Discharge Date: Expected LOS: Initial Reviewer: [email or web address] Initial Review Date: 04/03/2020 Generated: 04/14/20 4:47 pm Comments DCP- Discharge Planning Updated by [email or web address]: Zena Tate on 04/14/20 2:[address] Updated clinical, [facility], DC order faxed to [place] at [phone] per their request. He should discharge via ambulance today. Primary nurse is doing his COBRA form and Ambulance form for transfer back. DCP- Discharge Planning Updated by [email or web address]: Ariadne Fisher on 04/13/20 8:[address] Patient has a transfer back agreement with [facility]. Dr. White stated that the patient can transfer to floor and then we may work transferring back to [place] ([place]) CM received a call from Raisa Stephens from [place] questioning about patient coming back to swing bed for rehab RAISA STEPHENS contact [phone] ext [phone] fax [phone] DCP- Discharge Planning Updated by [email or web address]: Ariadne Fisher on 04/13/20 7:[address] LATE ENTRY 04/11/20 Patient Name: LAUREL GLEASON Admission Status: Elective Accout number: [id number] Admission Date: 04-03-2020 : 1940 Admission Diagnosis:SEPSIS, UNSPECIFIED ORGANISM Attending: BRISSA BHAGAT Current LOS: 10 Anticipated DC Date: Planned Disposition: Primary Insurance: [employer] CHOICE PPO MCR ADVANT Discharge Planning Comments: CM called and spoke with patient's contact Juan F to complete initial dc planning assessment. CM educated patient on the CM role and verbal consent given by patient to complete assessment. Patient lives at home alone Patient is independent. Juan F states they have been trying to get him into a NH. [facility] CM discussed availability of home health, rehab services, and medical equipment. Patient has HH with [facility] complete. CM will continue to follow and will assist as needed with dc plans/needs. Hotel Maintenance Worker: Ariadne Furr DCPIA - Discharge Planning Initial Assessment Updated by [email or web address]: Ariadne Fisher on 04/13/20 8:24 pm * Is the patient Alert and Oriented? Yes * How many steps to enter\exit or inside your home? * PCP HUN[facility] * Pharmacy [facility] * Preadmission Environment Home Alone * ADLs Partial Dependent * Partial ADLs (Assistance needed) Ambulation Bathing Dressing Eating Medication Management Toileting Transfers * Equipment None * List name and contact numbers for known caregivers / representatives who currently or will assist patient after discharge: JUAN F GARCIA - [place] - [phone] * Community resources currently utilized Home Health * Please name any agencies selected above. [facility] * Additional services required to return to the preadmission environment? No * Can the patient safely return to the preadmission environment? Yes * Has this patient been hospitalized within the prior 30 days at any hospital? No Last DP export: 04/13/20 8:27 p Patient Name: LAUREL GLEASON Page [id number] at 1548 All edits/amendments must be made on the electronic document DICTATION DATE: 04/14/201546 LATIN DANCE INSTRUCTOR: ZAIN 04/14/201546 RPT#: [id number] DC DATE: STATUS: ADM IN [facility] [address] [place] [address] END OF REPORT
--- NOTE | 2020-04-14 16:01 | NUR ---
AMBULANCE NOTIFIED OF TRANSFER
--- NOTE | 2020-04-14 16:34 | NUR ---
DINNER TRAY SERVED, PT FEEDING SELF
--- NOTE | 2020-04-14 17:55 | NUR ---
pt sitting up watching tv, call light in reach, will monitor
--- NOTE | 2020-04-14 18:29 | MORECARE ---
CASE MANAGEMENT DISCHARGE SUMMARY PATIENT: LAUREL GLEASON UNIT: [id number] ADM DATE: 04/03/20 AGE: 80 : 39 SEX: M ROOM/BED: D.2310 AUTHOR: YUSUF,DOC PHYSICIAN: REFERRING PHYSICIAN: BRISSA BHAGAT MD DATE OF SERVICE: 04/14/20 Discharge Plan Patient Name: LAUREL GLEASON Facility: [facility]:[place] : 1940 Planned Disposition: Anticipated Discharge Date: Discharge Date: Expected LOS: Initial Reviewer: [email or web address] Initial Review Date: 04/03/2020 Generated: 04/14/20 7:28 pm Comments DCP- Discharge Planning Updated by [email or web address]: Gulshan Ng on 04/14/20 5:[address] Patient Name: LAUREL GLEASON Encounter No: [id number] : 1940 Primary Insurance: [employer] CHOICE PPO MCR ADVANT Anticipated DC Date: Planned Disposition: External Planned Provider: : DCP follow-up note: Received phone call from ICU nurse to notify that Dr. White desires patient to transfer back to [facility]. Phone call to [facility]. Spoke with HUSSAIN Hand at [phone]. Yazan confirmed the availability of an inpatient bed and the ability to accept. Informed ICU nurse that transfer proceeding should begin. ICU nurse acknowledged transfer status. Spoke with Gissel, informed that there was no DC order or DC med-Rec. Gissel states that she already spoke with Dr. White and has received a telephone order. Will continue to follow and assist as needed. Gulshan Ng DCP- Discharge Planning Updated by [id number]: Zena Mcgregormore on 04/14/20 2:[address] Updated clinical, MAR, DC order faxed to [place] at [phone] per their request. He should discharge via ambulance today. Primary nurse is doing his COBRA form and Ambulance form for transfer back. DCP- Discharge Planning Updated by [email or web address]: Ariadne Fisher on 04/13/20 8:[address] Patient has a transfer back agreement with [facility]. Dr. White stated that the patient can transfer to floor and then we may work transferring back to [place] ([place]) CM received a call from Tatiana Stephens from [place] questioning about patient coming back to swing bed for rehab TATIANA STEPHENS contact [phone] ext [phone] fax [phone] DCP- Discharge Planning Updated by [email or web address]: Ariadne Natalia on 04/13/20 7:[address] LATE ENTRY 04/11/20 Patient Name: LAUREL GLEASON Admission Status: Elective Accout number: [id number] Admission Date: 04-03-2020 : 1940 Admission Diagnosis:SEPSIS, UNSPECIFIED ORGANISM Attending: BRISSA BHAGAT Current LOS: 10 Anticipated DC Date: Planned Disposition: Primary Insurance: HU[employer]NA CHOICE PPO [facility] Discharge Planning Comments: CM called and spoke with patient's contact Juan Manuel to complete initial dc planning assessment. CM educated patient on the CM role and verbal consent given by patient to complete assessment. Patient lives at home alone Patient is independent. Juan Manuel states they have been trying to get him into a NH. [facility] CM discussed availability of home health, rehab services, and medical equipment. Patient has HH with [facility] complete. CM will continue to follow and will assist as needed with dc plans/needs. Bush Regenerator: Ariadne Lopezr DCPIA - Discharge Planning Initial Assessment Updated by [email or web address]: Ariadne Lopezr on 04/13/20 8:24 pm * Is the patient Alert and Oriented? Yes * How many steps to enter\exit or inside your home? * PCP HUNG Gould APN * Pharmacy [facility] * Preadmission Environment Home Alone * ADLs Partial Dependent * Partial ADLs (Assistance needed) Ambulation Bathing Dressing Eating Medication Management Toileting Transfers * Equipment None * List name and contact numbers for known caregivers / representatives who currently or will assist patient after discharge: JUAN MANUEL GARCIA - FRIEND - [phone] * Community resources currently utilized Home Health * Please name any agencies selected above. [facility] * Additional services required to return to the preadmission environment? No * Can the patient safely return to the preadmission environment? Yes * Has this patient been hospitalized within the prior 30 days at any hospital? No Last DP export: 04/14/20 2:48 p Patient Name: LAUREL GLEASON Page [id number] at 1829 All edits/amendments must be made on the electronic document DICTATION DATE: 04/14/201827 BISCUIT PACKER: ZAIN 04/14/201827 RPT#: [id number] DC DATE: STATUS: ADM IN [facility] [address] [place] [address] END OF REPORT
--- NOTE | 2020-04-14 18:50 | NUR ---
pt transferred back to [facility] via ambulance, paperwork sent with ambulance staff,belongings, dentures, and glasses sent with patient, no dsitress noted
--- NOTE | 2020-04-16 08:43 | MORECARE ---
CASE MANAGEMENT DISCHARGE SUMMARY PATIENT: LAUREL GLEASON UNIT: [id number] ADM DATE: 04/03/20 AGE: 80 : 39 SEX: M ROOM/BED: D.2310 AUTHOR: YUSUF,DOC PHYSICIAN: REFERRING PHYSICIAN: BRISSA BHAGAT MD DATE OF SERVICE: 04/16/20 Discharge Plan Patient Name: LAUREL GLEASON Facility: [facility]:[place] : 1940 Planned Disposition: Anticipated Discharge Date: Discharge Date: 04/14/2020 Expected LOS: Initial Reviewer: [email or web address] Initial Review Date: 04/03/2020 Generated: 04/16/20 9:42 am Comments DCP- Discharge Planning Updated by [email or web address]: Gulshan Ng on 04/14/20 5:[address] Patient Name: LAUREL GLEASON Encounter No: [id number] : 1940 Primary Insurance: [employer] CHOICE PPO MCR ADVANT Anticipated DC Date: Planned Disposition: External Planned Provider: : DCP follow-up note: Received phone call from ICU nurse to notify that Dr. White desires patient to transfer back to [facility]. Phone call to [facility]. Spoke with HUSSAIN Hand at [phone]. Yazan confirmed the availability of an inpatient bed and the ability to accept. Informed ICU nurse that transfer proceeding should begin. ICU nurse acknowledged transfer status. Spoke with Gissel, informed that there was no DC order or DC med-Rec. Gissel states that she already spoke with Dr. White and has received a telephone order. Will continue to follow and assist as needed. Gulshan Ng DCP- Discharge Planning Updated by [email or web address]: Zena Tate on 04/14/20 2:[address] Updated clinical, MAR, DC order faxed to [place] at [phone] per their request. He should discharge via ambulance today. Primary nurse is doing his COBRA form and Ambulance form for transfer back. DCP- Discharge Planning Updated by [id number]: Ariadne Fisher on 04/13/20 8:[address] Patient has a transfer back agreement with [facility]. Dr. White stated that the patient can transfer to floor and then we may work transferring back to [place] ([place]) CM received a call from Tatiana Stephens from [place] questioning about patient coming back to swing bed for rehab TATIANA STEPHENS contact [phone] ext [phone] fax [phone] DCP- Discharge Planning Updated by [email or web address]: Ariadne Fisher on 04/13/20 7:[address] LATE ENTRY 04/11/20 Patient Name: LAUREL GLEASON Admission Status: Elective Accout number: [id number] Admission Date: 04-03-2020 : 1940 Admission Diagnosis:SEPSIS, UNSPECIFIED ORGANISM Attending: BRISSA BHAGAT Current LOS: 10 Anticipated DC Date: Planned Disposition: Primary Insurance: HUMANA CHOICE PPO [facility] Discharge Planning Comments: CM called and spoke with patient's contact Juan Manuel to complete initial dc planning assessment. CM educated patient on the CM role and verbal consent given by patient to complete assessment. Patient lives at home alone Patient is independent. Juan Manuel states they have been trying to get him into a NH. [facility] CM discussed availability of home health, rehab services, and medical equipment. Patient has HH with [facility] complete. CM will continue to follow and will assist as needed with dc plans/needs. Signal Constructor: Ariadne Fisher DCPIA - Discharge Planning Initial Assessment Updated by [email or web address]: Ariadne Fisher on 04/13/20 8:24 pm * Is the patient Alert and Oriented? Yes * How many steps to enter\exit or inside your home? * PCP [facility]UN[facility] Gould APN * Pharmacy [facility] * Preadmission Environment Home Alone * ADLs Partial Dependent * Partial ADLs (Assistance needed) Ambulation Bathing Dressing Eating Medication Management Toileting Transfers * Equipment None * List name and contact numbers for known caregivers / representatives who currently or will assist patient after discharge: JUAN MANUEL JOSE - [place] - [phone] * Community resources currently utilized Home Health * Please name any agencies selected above. [facility] * Additional services required to return to the preadmission environment? No * Can the patient safely return to the preadmission environment? Yes * Has this patient been hospitalized within the prior 30 days at any hospital? No Last DP export: 04/14/20 5:29 p Patient Name: LAUREL GLEASON Page 23618 at 0843 All edits/amendments must be made on the electronic document DICTATION DATE: 04/16/20841 STATISTICAL SECRETARY: ZAIN 04/16/2042 RPT#: [id number] DC DATE:04/14/20 STATUS: DIS IN [facility] [address] [place] [address] END OF REPORT
--- NOTE | 2020-04-17 09:49 | OP ---
PATIENT NAME: LAUREL GLEASON MEDICAL RECORD: [id number] :38 LOCATION:.[facility] D.2310 ADMISSION DATE:04/03/20 SURGEON: LINA MCKEON MD DATE OF OPERATION: 04/03/2020 PREOPERATIVE DIAGNOSES: 1. Need for IV access. 2. C. diff colitis. 3. Acute respiratory failure, on the ventilator. POSTOPERATIVE DIAGNOSES: 1. Need for IV access. 2. C. diff colitis. 3. Acute respiratory failure, on the ventilator. PROCEDURE: Right subclavian vein triple-lumen central venous line placement. SURGEON: Lina Mckeon MD REPORT OF PROCEDURE: The patient's right chest was prepped and draped in sterile fashion. A needle was used to cannulate the right subclavian vein and a guidewire was advanced with ease. Dilator was then placed over the wire followed by the triple-lumen catheter. The catheter aspirated nonpulsatile dark blood and flushed easily in all 3 ports. This was sutured into place with 3-0 nylons and dressed appropriately. COMPLICATIONS: None. CONDITION: Fair. ANESTHESIA: General endotracheal. BLOOD LOSS: Minimal. Procedure done in the ICU at the bedside. NTS:[id number] Voice Confirmation ID: [id number] DOCUMENT ID: [id number] LINA MCKEON MD at 0949 CC: [id number] DICTATION DATE: 04/03/20 1619 AUTOMATIC MACHINES SUPERVISOR: 04/04/20 0040 DIS IN 04/14/20 [place] [id number] [place] [id number]
== END 2020-04-14 18:50 | disposition short-term general hospital (02) | DRG 871 ==
LOC: D.ICU 15:48
PROVIDERS: Family Medicine; Internal Medicine Nephrology; Internal Medicine Pulmonary Disease; ADMIT Emergency Medicine; ATTEND Emergency Medicine
PROC: 05H533Z Insertion of Infusion Device into Right Subclavian Vein, Percutaneous Approach (ICD-10-PCS; principal; 2020-04-03)
PROC: 5A1945Z Respiratory Ventilation, 24-96 Consecutive Hours (ICD-10-PCS; 2020-04-03)
DX: A41.9 Sepsis, unspecified organism (principal); R65.21 Severe sepsis with septic shock; J96.01 Acute respiratory failure with hypoxia; J18.9 Pneumonia, unspecified organism; N17.0 Acute kidney failure with tubular necrosis; I50.21 Acute systolic (congestive) heart failure; A04.72 Enterocolitis due to Clostridium difficile, not specified as recurrent; E87.2 Acidosis; G72.81 Critical illness myopathy; I11.0 Hypertensive heart disease with heart failure; E78.5 Hyperlipidemia, unspecified; K21.9 Gastro-esophageal reflux disease without esophagitis; E87.5 Hyperkalemia; D64.9 Anemia, unspecified; I73.9 Peripheral vascular disease, unspecified; R73.03 Prediabetes; N40.0 Benign prostatic hyperplasia without lower urinary tract symptoms; R53.81 Other malaise